=== PATIENT | female | born 1955 | race Caucasian/White ===

== ENCOUNTER 2025-03-21 18:50 | Inpatient (IN) | payer MEDICARE, SELFPAY ==
[2025-03-21] VITALS (8 sets, daily range): BP systolic 130–162; BP diastolic 64–101; BMI 32.9
--- NOTE | 2025-03-21 16:00 | ED.GENMED ---
History of Present Illness
General
Chief Complaint: Cardiac Symptoms
Source: patient
Exam Limitations: none
Time Seen by Provider: 03/21/25 15:35
Nursing documentation reviewed up to this point in time: agreed with
History of Present Illness
History of Present Illness:
Patient is a 69-year-old female with past history of breast CA who presents to the emergency department for evaluation of abnormal EKG. patient states she was at [facility] receiving a mammogram when she had vital signs taken which showed a low
heart rate of 43. They then performed an EKG at the facility and was then sent to the emergency department for further evaluation given abnormal findings.
Patient states overall she has been feeling relatively well. However she does endorse recent increased fatigue with exertion including walking on the treadmill. She denies any chest pain, shortness of breath, dizziness/lightheadedness. She has
not had any episodes of syncope.
She states that she last saw her primary care physician back in August and at that time had a normal heart rate.
Patient states she was receiving chemotherapy back in 2016 for breast CA. She briefly followed with a patient consumer marketer at that time as the medication to ensure that she never developed any cardiac side effects. Patient denies any personal history of
CAD.
She does take multiple supplements.
Patient's father had known coronary artery disease.
Past History
Past History
ED Past Medical History: Hypothyroidism, Psychiatric (Bipolar disorder) and Other (Resection of cerebellar tumor)
ED Past Surgical History: Cholecystectomy and Gynecological (bilateral oopherectomy, ectopic )
Social History
Tobacco: Non-smoker
Alcohol: Occasional
Personal:
Family History
Family History: Diabetes
Phy Exam
Physical Exam
Physical Exam:
Vitals: Mildly hypertensive, bradycardic, otherwise vital signs stable. Afebrile
General: Patient is well appearing, no acute distress
Skin: Warm and dry, no rashes or lesions
Head: Normocephalic, atraumatic
Eyes: Sclera nonicteric. EOMs intact. No nystagmus.
Throat: Protecting airway
Neck: Normal ROM, no cervical spine tenderness, no meningismus
Cardiac: Regular rate and rhythm, no murmurs. 2+ palpable radial pulses bilaterally
Pulm: Normal respiratory effort, no wheezes, rales, rhonchi heard on exam
Abdomen: Abdomen soft and nontender.
Extremities: No evidence of cyanosis or edema. 2+ palpable DP pulses bilaterally
Neuro: AAOx3. Grossly intact.
Psychiatric: Normal affect.
Course
Orders/Labs/Results
Orders:
Orders
03/21/25 14:44
Electrocardiogram (*1) Urgent
Reason for Study: Bradycardia / Tachycardia
EKG- Treatment ONCE
03/21/25 Dinner
Regular
At Your Request: Full Participation
Does patient need a safe tray?: No
03/21/25 16:26
Complete Blood Count/With Diff Urgent
Comprehensive Metabolic Panel Urgent
Free T4 Urgent
Magnesium Urgent
TSH Reflex To Free T4 Urgent
Troponin I Urgent
03/21/25 17:10
Electrocardiogram (*1) Urgent
Reason for Study: Palpitations
03/21/25 18:13
CARDIOLOGY CONSULT Routine
Consulting Provider: Juan Morrell
Was physician already notified: Yes
Reason for consult: mobitz type 2 heart block
03/21/25 18:14
Admit/Transfer Patient As Directed
Co-Sign Provider:
Level of Care: Inpatient admission
Assign to:: IVU
Physician / Group: cody borges
Diagnosis: mobitz type 2 heart block
Reason for Hospitalization: mobitz type 2 heart block
Expected length of stay greater than two midnights?: Yes
ELOS- Estimated Length of Stay in days: 3
I certify the patient meets the requirements for IP care: Yes
Code Status As Directed
Resuscitation Status: Full Code
03/21/25 18:18
PRN Pain Medication Management As Directed
May give lesser potent ordered pain med per pt: Yes
preference::
Protocol:: Medication orders for pain may be administered in a
manner that supports deferring to patient preference
when the pt is:
- Requesting an ordered lesser potent pain medication.
Least to most potent pain medications are defined
as: acetaminophen < NSAID < tramadol < opioids
(morphine, oxycodone, hydromorphone).
- Requesting a lesser dose of the same medication IF
ORDERED.
- Requesting a less intrusive route of administration
if both routes are prescribed by the provider (PO <
IV).
03/21/25 20:30
Acetaminophen [Tylenol] 650 mg PO Q4HPRN PRN
03/21/25 20:30
Activity As Directed
Activity Level: As Tolerated
Pneumatic Compression Sleeves As Directed
Type: Knee high
Vital Signs As Directed
Frequency: Per unit guidelines
Pt Eval And Treat Routine
Activity Level: As Tolerated
DX Deep Vein Thrombosis Video Routine
03/21/25 22:00
Quetiapine Fumarate [Seroquel] 100 mg PO HS
lamotrigine [Lamictal] 150 mg PO HS
03/22/25 06:00
EKG [Electrocardiogram (*1)] IN AM
Reason for Study: Other
Other Reason for Exam: heart block
NPO
Allow oral meds: Yes
Allow clear liquids: No
NPO with Ice Chips: No
Cardiovascular Evaluation IN AM
Complete Blood Count/With Diff IN AM
Comprehensive Metabolic Panel IN AM
03/22/25 18:00
Atorvastatin [Lipitor] 10 mg PO QPM
Cholecalciferol (Vitamin D3) [VITAMIN D3 (cholecalciferol)] 25 mcg PO QPM
Abnormal Lab Results
03/21/25
16:26
WBC 11.7 H 10^3/uL
(4.8-10.8)
MCH 32.5 H pg
(27.0-31.0)
Absolute Neuts (auto) 8.4 H 10^3/uL
(1.4-6.5)
Absolute Monos (auto) 0.8 H 10^3/uL
(0.1-0.6)
Lymphocytes % 20.1 L %
(20.5-51.1)
Glucose 112 H mg/dl
(70-99)
TSH (Reflex) 0.07 L uIU/ml
(0.47-4.68)
03/21/25 16:26
03/21/25 16:26
Vital Signs
Initial and Last Documented VS:
Initial Vital Signs
Temp Pulse Resp BP Pulse Ox
98.2 F 52 16 162/78 98
03/21/25 14:44 03/21/25 14:44 03/21/25 14:44 03/21/25 14:44 03/21/25 14:44
Last Documented Vital Signs
Temp Pulse Resp BP Pulse Ox
98 F 65 16 154/75 93
03/21/25 22:03 03/21/25 23:00 03/21/25 22:03 03/21/25 22:06 03/21/25 23:55
MDM/Problems Addressed
Differential Diagnosis Includes:
Not limited to: Medication side effect, acute dehydration, hypothyroid, cardiac arrhythmia, CAD, etc.
MDM/Problems Addressed:
69-year-old female presenting with asymptomatic bradycardia. Low heart rate detected at her scheduled mammogram appointment and patient sent for further evaluation. On arrival � EKG looks like sinus bradycardia in 40s. She is asymptomatic at this
time however does report some exertional fatigue over the past few weeks.
Patient bradycardic however, normotensive and otherwise stable. Physical exam as above.
Will check basic labs, thyroid levels, cardiac enzymes. Will keep patient on environmental monitoring technician and reassess.
Update: patient�s lab results unremarkable. As I was in the exam room with patient sharing results from lab test her pulse rate did increase into 60s/70s briefly however I did witness her rhythm convert to a type two second� AV block with 2:1
conduction. She remained asymptomatic at this time. An EKG was repeated which confirmed 2nd degree heart block.
I discussed with cardiology, Dr Morrell and given patient is stable and asymptomatic � recommend admission to hospitalist with plan for permanent pacemaker placement in the morning.
Transcutaneous pads placed. Patient accepted to hospitalist service in stable condition.
Chronic conditions affecting care:
History of breast CA
Acute Exacerbation and/or Progression of Chronic Illness:
N/A
*Pulse Oximetry
SaO2: 98
Oxygen Mode of Delivery: Room air
Patient hypoxic: no
*EKG
Interpreted by ED Provider?: Yes
EKG Intrepretation Date: 03/21/25
Interpretation: abnormal
Comparison EKG: changes noted
Heart Rate: 46
Rate: bradycardiac
Rhythm: sinus
[place]: normal axis
Interval: normal QT interval
QRS Pattern: right bundle branch block
Ischemia: no ischemia
*Production Generalist Interpretation
Rate: bradycardiac
Interpretation: abnormal
Heart Rate: 48
Rhythm: sinus
*Critical Care Note
Total Time (30-74mins, 75-104mins- exclusive of procedures): Not Applicable
Patient Management
Discussion with other providers: Hospitalist and Turnaround Engineer (Case discussed with cardiology)
ED Attending Note
-
Portions of this chart may have been created with voice recognition software.� Occasional wrong word or��sound alike� substitutions may have occurred due to the inherent limitations of voice recognition software.
Discharge Plan
Departure
Patient Disposition: Admit
Date of Disposition: 03/21/25
Time of Disposition: 17:53
Presentation/result/management discussed w/ accepting MD/DO: Hospitalist
Discharge Problem:
Mobitz (type) II atrioventricular block
Interventions
Interventions:
*Risk Screen - Suicide Last Done: 03/21/25 14:44
*General Assessment Last Done: 03/21/25 16:10
*Neglect/Abuse Screening Last Done: 03/21/25 14:44
*Nursing Disposition Last Done: 03/21/25 20:34
ED- Pulmonary Assessment Last Done: 03/21/25 16:10
ED- Cardiac Assessment Last Done: 03/21/25 16:10
Discharge Date and Time
Discharge Date/Time: 03/21/25 20:34
[2025-03-21 16:42] LABS: Hematocrit 41.3 % (37.0-47.0); Hemoglobin 13.8 g/dL (12.0-16.0); Mean Corp Hgb Conc. 33.4 g/dL (33.0-37.0); Mean Corpuscular Volume 97.2 fL (81.0-99.0); Nucleated Red Blood Cells % 0 %; Platelet Count 256 10^3/uL (130-400); Red Cell Dist. Width 12.8 % (11.5-14.5)
[2025-03-21 17:03] LABS: ALT (SGPT) 35 U/L (0-35); AST (SGOT) 30 U/L (14-36); Albumin 4.9 g/dl (3.5-5.0); Alkaline Phosphatase 81 U/L (38-126); Blood Urea Nitrogen 13 mg/dl (7-17); Calcium 9.9 mg/dl (8.4-10.2); Carbon Dioxide 25 mmol/L (22-30); Chloride 107 mmol/L (98-107); Estimated Creatinine Clearance 74 ml/min; Glucose 112 mg/dl (70-99); Magnesium 2.2 mg/dl (1.6-2.3); Potassium 5.0 mmol/L (3.5-5.1); Sodium 141 mmol/L (135-145); Total Protein 8.0 g/dl (6.3-8.2); eGFR > 60.00
[2025-03-21 17:30] LABS: Troponin I < 0.012 ng/ml
--- NOTE | 2025-03-21 18:24 | HPS.HSE ---
Family Physician
-
Family Physician: Kristen Phelan MD
Chief Complaint
-
Bradycardia with heart block
History of Present Illness
69-year-old female states she was at [facility] today receiving a mammogram when she had vitals taken that showed a heart rate of 43. She had EKG performed at facility showing Mobitz 2 secondary heart block and was sent to ER for further
evaluation. She does report some increased fatigue with exertion including walking on the treadmill. She denies any headache, dizziness, lightheadedness, syncope, fever, chills, sore throat, chest pain, palpitation, abdominal pain, nausea,
vomiting, diarrhea, urinary symptoms. The patient has past medical history of hypothyroidism, cerebellar tumor benign status post resection, bipolar disorder, left-sided breast cancer s/p lumpectomy 2016, former smoker quit 20 years ago.
Medical History
Past Medical History
Past Medical History: Reports Other
Additional Past Medical History:
Hypothyroidism
Cerebellar tumor status post resection
Bipolar disorder.
Past Surgical History: Reports Other
Additional Past Surgical History:
Cerebellar tumor benign status post resection 2014
Bilateral oophorectomy
ectopic
cholecystectomy
Social History
Tobacco: Former Smoker (Quit 20 years ago)
Alcohol: Occasional (Weekend drinks 6 drinks)
Drug: None
Personal:
Living: With Family ()
Employment: Retired
Family History
Family History: CAD (Father [place] age 61)
Allergies / Home Medications
Allergies reflects when Allergies were last updated in Simple.
Home Medications with original date entered in Simple
Allergy/Medication List:
Allergies
Allergy/AdvReac Type Severity Reaction Status Date / Time
prochlorperazine (From Allergy Unknown Verified 03/21/25 14:47
Compazine)
prochlorperazine edisylate Allergy Unknown Verified 03/21/25 14:47
(From Compazine)
prochlorperazine maleate Allergy Unknown Verified 03/21/25 14:47
(From Compazine)
scopolamine (From Allergy confusion, Verified 03/21/25 14:47
Transderm-Scop) dilated
pupils
Sulfa (Sulfonamide Allergy Unknown Verified 03/21/25 14:47
Antibiotics)
Home Medications
Prevagen 1 cap PO DAILY 03/21/25
ashwagandha extract 120 mg capsule 120 mg PO QPM 03/21/25
cholecalciferol (vitamin D3) 25 mcg (1,000 unit) capsule (Vitamin D3) 25 mcg PO QPM 03/21/25
lamotrigine 150 mg tablet (Lamictal) 150 mg PO HS 03/21/25
levothyroxine 50 mcg tablet (Synthroid) 50 mcg PO DAILY 03/21/25
omega 1-gly-bjq-fish oil 1,000 mg (120 mg-180 mg) capsule (Fish Oil) 1 cap PO QPM 03/21/25
quetiapine 100 mg tablet (Seroquel) 100 mg PO HS 03/21/25
simvastatin 20 mg tablet (Zocor) 20 mg PO QPM 03/21/25
turmeric 400 mg capsule 400 mg PO QPM 03/21/25
Review of Systems
-
History Source: Patient
A 12 point ROS was completed and negative except as noted: Yes
Constitutional: Denies Fever or Chills
EENT: Denies Sore Throat
Respiratory: Reports Other (Increased HUBER with exertion times few months); Denies Cough or Trouble Breathing
Cardiac: Reports Other (Bradycardia); Denies Chest Pain, Palpitations or Syncope
Abdomen/GI: Denies Abdominal Pain, Nausea, Vomiting, Diarrhea or Constipated
: Denies Dysuria, Frequency, Flank Pain or Incontinence
Musculoskeletal: Denies Joint Pain or Edema
Skin: Denies Itching or Rash
Neurological: Reports Dizzy (Occasional lightheadedness random); Denies Headache
Endocrine: Reports No Symptoms
Hematologic/Lymphatic: Reports No Symptoms
Psych: Reports Calm
Physical Exam
Vital Signs
Vital Signs
Temp Pulse Resp BP Pulse Ox
98.2 F 52 16 162/78 98
03/21/25 14:44 03/21/25 14:44 03/21/25 14:44 03/21/25 14:44 03/21/25 16:08
Physical Exam
General: Comfortable and Conversant; No Pain, Fever or Chills
HEENT: NormoCephalic, Anicteric, Moist mucous membranes, PERRLA and No Ptosis
Respiratory: Clear; No Wheezes, Rales or Rhonchi
Cardiac: S1/S2 and Bradycardia (Heart rate 44 bpm on monitor, pacer pads present to chest wall); No Murmur, Rub, Gallop or Peripheral Edema
Breast: Deferred by me
GI: Soft, Non Tender, Non Distended, Normal Bowel Sounds and No Hepatosplenomegaly
Genito-urinary: Deferred by me
Musculoskeletal: No Clubbing, No Cyanosis and No Edema
Skin: Warm and Dry; No Rash or Jaundice
Neuro: AO x 3, No Motor Deficits, Nonfocal/grossly intact, Cranial Nerves Intact and No Sensory Deficits; No Slurred Speech, Facial Droop, Tremors or Sedated
Psych: Calm
Laboratory Results
-
03/21/25 16:26
03/21/25 16:26
Laboratory Results
Total Bilirubin 0.8 mg/dl (0.2-1.3) 03/21/25 16:26
AST 30 U/L (14-36) 03/21/25 16:26
ALT 35 U/L (0-35) 03/21/25 16:26
Alkaline Phosphatase 81 U/L (38-126) 03/21/25 16:26
Troponin I < 0.012 ng/ml 03/21/25 16:26
Impression/Plan
-
Impression/plan:
Admit to IVU
#Mob[place] type II 2:1 AV block
-Consult cardiology Dr. Jerman joyner
-N.p.o. after midnight for pacemaker in a.m.
-Pacer pads present to chest wall
-EKG in a.m.
- 2D echo in a.m.
#Bipolar disorder
QTc 453 MS on EKG
-Continue Seroquel 100 mg at bedtime, Lamictal 150 mg at bedtime
#HLD
-Check lipid profile
-Continue Zocor 20 mg every afternoon
#Hypothyroidism
TSH 0.07 LOW
- Will decrease levothyroxine 50 mcg p.o. daily to levothyroxine 37.5 mcg p.o. daily
Have patient follow-up outpatient 6 to 8 weeks with PCP for repeat thyroid function studies
#History of breast cancer status postchemotherapy 2016
- Patient had outpatient mammogram today
#Cerebellar tumor benign status post resection 2014
DVT prophylaxis
Subcu heparin
Full code
--- NOTE | 2025-03-21 18:41 | CON.CAR ---
Consultation
Consultation Request
Date/Time Consultation Requested: 03/21/2025
Date/Time Consultation Performed: 03/21/2025
Requesting Provider: Yael Laura PA-C
Performing Provider: Dr. Morrell
Reason for Consultation: Heart block
Medical History
-
Chief Complaint: Heart block
History of Present Illness:
69-year-old female with hyperlipidemia, hypothyroidism, breast cancer status-postlumpectomy and radiation (2016), cerebellar hemangioma status-post removal (2014), obesity, and bipolar disorder who was referred to the ER after being found to be in
heart block during a routine screening mammogram. The patient states that she occasionally feels lightheadedness, but she has not had any near-syncope/syncopal episodes. She also experiences intermittent episodes of shortness of breath with
exertion (non-limiting). She denies chest pain, palpitations or lower extremity swelling. Patient was found to be in Mobitz 2 heart block with heart rates in the 40s upon arrival to the ER.
Past Medical History
Past Medical History: Cancer (Breast) and Hypothyroidism
Past Surgical History: Gynecological (Lumpectomy, oophorectomy)
Social History
Tobacco: Former Smoker (Quit 30 years ago)
Alcohol: Occasional (On weekends)
Drug: None
Living: With Family
Family History
Family History: Reviewed & Not Pertinent
Allergies / Home Medications
Allergy/AdvReac Type Severity Reaction Status Date / Time
prochlorperazine (From Allergy Unknown Verified 03/21/25 14:47
Compazine)
prochlorperazine edisylate Allergy Unknown Verified 03/21/25 14:47
(From Compazine)
prochlorperazine maleate Allergy Unknown Verified 03/21/25 14:47
(From Compazine)
scopolamine (From Allergy confusion, Verified 03/21/25 14:47
Transderm-Scop) dilated
pupils
Sulfa (Sulfonamide Allergy Unknown Verified 03/21/25 14:47
Antibiotics)
�Medication �Instructions �Recorded �Confirmed �Type
Prevagen 1 cap PO DAILY 03/21/25 03/21/25 History
ashwagandha extract 120 mg capsule 120 mg PO QPM 03/21/25 03/21/25 History
cholecalciferol (vitamin D3) 25 25 mcg PO QPM 03/21/25 03/21/25 History
mcg (1,000 unit) capsule (Vitamin
D3)
lamotrigine 150 mg tablet 150 mg PO HS 03/21/25 03/21/25 History
(Lamictal)
levothyroxine 50 mcg tablet 50 mcg PO DAILY 03/21/25 03/21/25 History
(Synthroid)
omega 8-zpz-wuw-fish oil 1,000 mg 1 cap PO QPM 03/21/25 03/21/25 History
(120 mg-180 mg) capsule (Fish Oil)
quetiapine 100 mg tablet (Seroquel) 100 mg PO HS 03/21/25 03/21/25 History
simvastatin 20 mg tablet (Zocor) 20 mg PO QPM 03/21/25 03/21/25 History
turmeric 400 mg capsule 400 mg PO QPM 03/21/25 03/21/25 History
Review of Systems
-
History Source: Patient
All other systems: Negative unless noted
Physical Exam
Vital Signs
Temp Pulse Resp BP Pulse Ox
98.2 F 52 16 162/78 98
03/21/25 14:44 03/21/25 14:44 03/21/25 14:44 03/21/25 14:44 03/21/25 16:08
Lab Results
03/21/25 16:26
03/21/25 16:26
Troponin I < 0.012 ng/ml 03/21/25 16:26
Physical Exam
General: Well Developed, Well Nourished, No Apparent Distress and Comfortable
HEENT: Normocephalic and Anicteric
Respiratory: Clear
Cardiac: S1/S2 and Regular Rhythm (Bradycardic)
Breast: Deferred by me
GI: Soft and Non Tender
Rectal: Deferred by Provider
Musculoskeletal: No Clubbing, No Cyanosis and No Edema
Skin: Warm and Dry
Neuro: AO x 3
Psych: Calm
Impression / Plan
-
69-year-old female with hyperlipidemia, hypothyroidism, breast cancer status-postlumpectomy and radiation (2017), cerebellar hemangioma status-post removal (2014), obesity, and bipolar disorder who was referred to the ER after being found to be in
heart block during a routine screening mammogram. The patient states that she occasionally feels lightheadedness, but she has not had any near-syncope/syncopal episodes. She also experiences intermittent episodes of shortness of breath with
exertion (non-limiting). She denies chest pain, palpitations or lower extremity swelling. Patient was found to be in Mobitz 2 heart block with heart rates in the 40s upon arrival to the ER.
Mobitz 2 heart block/RBBB:
- Patient with bradycardia to 40s; clinically stable, currently asymptomatic.
- Patient is being admitted to the Hospitalist service.
- Patient will undergo permanent pacemaker implantation tomorrow morning; will obtain echocardiogram prior to procedure.
- hair designer in IVU; keep transcutaneous pacer pads in place.
Hypothyroidism:
- TSH pending.
- On Synthroid at home.
Hyperthyroidism:
- Current status unknown
- Check lipid panel
- On simvastatin 20 mg daily at home
Breast cancer:
- In remission.
Bipolar disorder:
- Mood appears to be stable at this time.
- Management as per primary team.
Data Reviewed
-
EKG: Tracing Personally Visualized and interpreted (Sinus rhythm with Mobitz 2 heart block with 2:1 AV conduction and right bundle branch block)
Labs: Labs Reviewed by me and Discussed with Physician (ER/Hospitalist teams)
--- NOTE | 2025-03-21 18:50 | W.PN.UPDATE ---
Update Note
Progress Note Update
This is an addendum to H&P written by LABELING ASSOCIATE Mariangel Mccain
I saw and examined the patient.
The LABELING ASSOCIATE's note was reviewed and I agree with the note.
Comment:
Ms. Gypsy Barbosa is a 69 yo woman with hx breast CA, hypothyroidism, bipolar disorder presents sent to ER after outpatient EKG showed a low HR with heart block. Patient was getting a mammogram when it was noticed her pulse was in 40's which led to
EKG. She has had increased fatigue with exertion, no chest pain or pre-syncope.
Triage VS: T 98.2, P 52, RR 16, BP 162/78, SpO2 98%
LABS: Na 141, K+ 5.0, Cr 0.7, WBC 11.7
EKG with 2nd degree heart block type II
2nd Degree Heart Block Mobitz Type II
-admit to IVU
-pacer pads on
-seen by Cardiology in ER
-NPO after MN for PPM tomorrow
-TTE
Bipolar - DIRECTOR OPERATING ROOM Seroquel (QTc OK), Lamictal
Hypothyroidism - TSH low, will decrease synthroid to 37.5mcg with close follow up TFT's
Remainder of plan per LABELING ASSOCIATE note
76 minutes spent on patient care
--- NOTE | 2025-03-21 21:25 | PTCARENOTE ---
Rec'd pt as admission from ER. Pt AAO*3, VSS, and Mobitz type 2 HB with occasional sinus rhythm. Heart rate ranges from 40-60's. Pt denies any weakness, lightheadedness, or vision changes. PT oriented to unit. Admission complete. Pt denies any
pain or discomfort. Pt denies having any questions or concerns. PT provided information on possible PPM in AM. Pt agreed to be NPO after midnight. Pt currently resting with call hayden in reach. See MAR and flowchart for full pt care and
assessment.
[2025-03-21] MEDS: LAMICTAL 150 MG PO (22:07)
[2025-03-21] MEDS: SEROQUEL 100 MG PO (22:08)
[2025-03-22] VITALS (14 sets, daily range): BP systolic 113–157; BP diastolic 62–85; BMI 32.8
[2025-03-22 03:45] LABS: Hematocrit 37.5 % (37.0-47.0); Hemoglobin 12.4 g/dL (12.0-16.0); Mean Corp Hgb Conc. 33.1 g/dL (33.0-37.0); Mean Corpuscular Volume 96.6 fL (81.0-99.0); Nucleated Red Blood Cells % 0 %; Platelet Count 244 10^3/uL (130-400); Red Cell Dist. Width 12.6 % (11.5-14.5)
[2025-03-22 04:08] LABS: ALT (SGPT) 32 U/L (0-35); AST (SGOT) 26 U/L (14-36); Albumin 4.4 g/dl (3.5-5.0); Alkaline Phosphatase 68 U/L (38-126); Blood Urea Nitrogen 11 mg/dl (7-17); Calcium 9.4 mg/dl (8.4-10.2); Carbon Dioxide 24 mmol/L (22-30); Chloride 109 mmol/L (98-107); Estimated Creatinine Clearance 74 ml/min; Glucose 101 mg/dl (70-99); HDL Cholesterol 72 mg/dl; LDL Cholesterol, Calculated 59 mg/dl; Potassium 4.4 mmol/L (3.5-5.1); Sodium 140 mmol/L (135-145); Total Protein 7.2 g/dl (6.3-8.2); Very Low Density Lipoprotein 21 mg/dl (0-30); eGFR > 60.00
[2025-03-22 04:58] LABS: Hepatitis C Antibody Negative (Negative)
--- NOTE | 2025-03-22 08:19 | W.PN.HOSP.TC ---
Addendum entered and electronically signed by Edilson Escobedo MD 03/22/25 14:10:
Mobitz type II heart block
Plan for PPM
2D echocardiogram pre-PPM placement
Cardiology following
Avoid AV deanna blocking agents
Continue cutaneous pacer pads
Hypothyroidism
Repeat TFTs in 4 to 6 weeks
Continue 50 mics levothyroxine
- TSH 0.07. Less likely hyperthyroidism or iatrogenic hyperthyroidism as would expect tachycardia rather then bradycardia and HB
Original Note:
Today's Communication/Plan
-
Echocardiogram and PPM
Assessment / Plan
Assessment / Plan
Impression
Gypsy is a 69-year-old female, admitted with Mobitz type II heart block with heart rate in 40s upon arrival to the ER.. She reports occasional lightheadedness, some shortness of breath on exertion but never had any syncopal episode.
Assessment/plan
#Mobitz type II heart block/right bundle branch block
On admission patient asymptomatic, EKG consistent with Mobitz type II heart block and right bundle branch block, heart rate in 40s
Overnight patient's heart rate remained in 50s to 60s
Plan to do echocardiogram today and permanent pacemaker implantation
Echo 03/22/25
Ejection fraction is 60-65% by volumetric assesment. Right ventricular size and systolic function are within normal limits.No significant valvular disease.
Patient still in Mobitz type 2 heart block-PPM due today
On telemetry in IVU
Monitor heart rate and blood pressure
# Hypothyroidism
Low TSH-0.07 -T4 1.11---Would continue her thyroxine
She is admitted with bradycardia-the S/S and lab values does not correlate
Continue same dose
Repeat TFTs in 4 to 6 weeks
#Hyperlipidemia
Continue simvastatin
Lipid panel looks great
#Bipolar disorder-on Seroquel at home, QTc okay, continue home medications
Anticipated Discharge: Within 24 hours
Subjective/Interval History
-
Date of Service: March 22, 2025
Patient seen and examined at bedside
She feels fine, denies any chest pain, shortness of breath, fatigue or any other issues
Currently undergoing her echocardiogram
Objective Data
-
Labs:
Laboratory Results
03/22/25
03:20
WBC 9.7
Hgb 12.4
Hct 37.5
Plt Count 244
Sodium 140
Potassium 4.4
Chloride 109 H
Carbon Dioxide 24
BUN 11
Creatinine 0.7
Glucose 101 H
Calcium 9.4
Total Bilirubin 0.7
AST 26
ALT 32
Alkaline Phosphatase 68
Vital Signs:
Vital Signs
Temp Pulse Resp BP Pulse Ox
98.8 F 65 20 128/73 94
03/22/25 07:35 03/22/25 03:09 03/22/25 07:35 03/22/25 03:09 03/22/25 07:35
I&O
03/21/25 03/22/25 03/23/25
06:59 06:59 06:59
Intake Total 240 / 240
Balance 240 / 240
Review of Systems
-
All other systems: Reviewed and negative
Physical Exam
-
General: Well Developed, Well Nourished and No Apparent Distress
HEENT: Normocephalic and Moist Mucous Membranes
Respiratory: Clear to Auscultation; Negative Wheezes, Rales or Rhonchi
Cardiac: Regular Rhythm, S1/S2 and Other (Heart rate 65)
GI: Soft and Nontender
Musculoskeletal: No Clubbing, No Cyanosis and No Edema
Skin: Warm and Dry
Neuro: Awake and AO x 3
Psych: Calm
[2025-03-22] MEDS: SYNTHROID 37.5 MCG PO (08:46)
--- NOTE | 2025-03-22 11:00 | PTCARENOTE ---
Pt going from SR to mobitz 2 on monitor. States feels 'fluttering and heaviness in chest', denies dizziness, BP 150/60. Linda Short NP made aware. No new orders at this time.
--- NOTE | 2025-03-22 11:30 | CM ---
Chart reviewed. Patient is independent of ADLS, lives with her in 2 [address], 0 YOSHI, 0 DME. Plan is for the patient to return home. CM to follow
--- NOTE | 2025-03-22 15:20 | PTCARENOTE ---
Received pt from shift lab technician, VSS, monitor showing AVpaced/Vpaced, underlying SR. Right chest wall dressing c/d/i. Immobilizer in place, +CMS to right hand/fingers. Medicated with tylenol for c/o right shoulder pain. Instructed on activity
restrictions, to call for assistance to ambulate. at bedside, call hayden in reach.
--- NOTE | 2025-03-22 16:04 | ITS.CL.PACE ---
Civil Drafter - Pacemaker Implant
Pacemaker Implant
Procedure Report:
Date of Procedure: March 22, 2025.
Procedure: Pacemaker Implantation. Right upper extremity venogram.
Indication: The pacemaker is for the treatment of nonreversible symptomatic bradycardia due to second degree (Mobitz II) atrioventricular block.
Performing physician: Andre Valdovinos MD, [facility].
Implants:
Pulse Generator: Medtronic; Model# W1DR01; Serial# [id number].
RA Lead: Medtronic; Model# 5076-45cm; Serial# [id number].
RV Lead: Medtronic; Model# 3830-69cm; Serial# [id number].
Technique: A time out was performed. A 10 mL upper extremity venogram demonstrated patent right axillary and subclavian veins. The procedure site was identified. The patient was anesthetized by the anesthesia service. Preoperative cefazolin was
administered. The patient was prepped and draped in the usual fashion. Local anesthetic was applied to the right prepectoral subcutaneous tissue. A 3 inch incision was made along the right deltopectoral groove. Dissection was carried to the fascia.
The right cephalic vein was no located upon careful dissection fo the deltopectoral fat pad. The right axillary vein was accessed with two separate percutaneous micro- punctures without difficulty. The leads were introduced with hemostatic peel
away introducer sheaths. The RV lead was placed using utilizing the FatRedCouch His delivery catheter ([id number]) that was advanced to the left bundle area as confirmed by fluoroscopy in the TELUGU and HERNANDEZ projections. The lead tip was advanced. PVC
morphology was reviewed. When a satisfactory location was identified (W pattern observed) the lead was screwed into position with serial turns. Septal engagement was confirmed with gentle torque applied to the guide sheath. After each series of
turns (2-3) unipolar sensed morphology and impedance, and paced morphology of V1 was analyzed. The lead was further advanced until satisfactory morphology and electrical characteristics were confirmed. The RV lead was placed in about the fourth
location evaluated. The long guiding sheath was cut and removed from the RV without change in lead position, impedance, sensing, or capture. The ventricular lead was secured to the pectoralis muscle and fascia with two 0-silk sutures. The atrial
lead was placed in the right atrial appendage. 8 volt pacing from each lead did not capture the diaphragm. The atrial leads was secured to the pectoralis muscle and fascia. A subcutaneous pocket was created with Bovie cautery. Hemostasis was
excellent. The leads were appropriately attached to the device. The pocket was irrigated with antibiotic solution. The device and leads were placed in the pocket. The incision was closed in three layers with absorbable suture. Steri-strips and a
silver impregnated dressing were placed. Estimated blood loss was 5 ml. There were no complications. Fluoroscopy time 6.3 minutes and DAP 2.38 GyCM2. The device was then interrogated after skin closure.
Lead Analysis:
RA lead: P: 2.8 mV; Threshold: 0.75 V @ 0.4 ms; Impedance: 485 ohms.
RV lead (bipolar): R: 8.8 mV; Threshold: 0.75 V @ 0.4 ms; Impedance: 817 ohms.
RV lead (unipolar): R: 9.5 mV; Threshold: 0.75 V @ 0.4 ms; Impedance: 646 ohms.
Paced QRS characteristics (both unipolar and bipolar at high and low outputs): V1 has Qr morphology and measures 120 ms in duration, LVAT (stim to peak V5/V6) is 76 ms, and R peak V1 to R peak V6 is 47 ms.
Final Programming: MVP (AAIR to DDDR) 60-130 bpm.
Conclusion: Uncomplicated Medtronic pacemaker implant. The pacing system is MRI conditional.
Recommendation: Routine post pacemaker care.
cc: Kristen Phelan MD and Juan Morrell MD.
[2025-03-22] MEDS: VITAMIN D3 (cholecalciferol) 25 MCG PO (17:09)
[2025-03-22] MEDS: LIPITOR 10 MG PO (17:09)
[2025-03-22] MEDS: TYLENOL 650 MG PO ×2 (17:09→21:54)
[2025-03-22] MEDS: LAMICTAL 150 MG PO (21:53)
[2025-03-22] MEDS: ANCEF 5 IV (21:53)
[2025-03-22] MEDS: SEROQUEL 100 MG PO (21:54)
--- NOTE | 2025-03-22 22:00 | PTCARENOTE ---
VS done by PCT. Pt assessed. Remains oriented x 4. Speech clear. Equal strength x 4. Assisted to BR to void clear, yellow urine. Helped back to bed. New gown applied. Immobilizer intact. BBS present. Clear. Sats 95% on room air. Pt AV paced at 60-61
bpm. pulses palpable. See VS and assessment flowsheet. Audible heart tones. Aquacel intact to R upper chest. Normoactive bs x 4. Passing gas. Requested stool softener if needed. Later refused for now. Tylenol 650 mg po for R shoulder pain 10/04.
Scheduled meds given. Ongoing plan of care.
[2025-03-23 03:22] VITALS: BP 129/63
[2025-03-23 04:09] LABS: Hematocrit 37.8 % (37.0-47.0); Hemoglobin 12.3 g/dL (12.0-16.0); Mean Corp Hgb Conc. 32.5 g/dL (33.0-37.0); Mean Corpuscular Volume 98.4 fL (81.0-99.0); Platelet Count 237 10^3/uL (130-400); Red Cell Dist. Width 12.7 % (11.5-14.5)
[2025-03-23 04:30] LABS: Blood Urea Nitrogen 12 mg/dl (7-17); Calcium 9.1 mg/dl (8.4-10.2); Carbon Dioxide 25 mmol/L (22-30); Chloride 108 mmol/L (98-107); Estimated Creatinine Clearance 74 ml/min; Glucose 99 mg/dl (70-99); Magnesium 2.2 mg/dl (1.6-2.3); Potassium 4.1 mmol/L (3.5-5.1); Sodium 141 mmol/L (135-145); eGFR > 60.00
--- NOTE | 2025-03-23 05:00 | PTCARENOTE ---
VS done. Pt remains AV paced. Pt labs drawn and sent. Scheduled antibiotic given. No c/o pain. Pt attempting to go back to sleep.
[2025-03-23] MEDS: ANCEF 5 IV (05:06)
[2025-03-23] MEDS: SYNTHROID 50 MCG PO (05:06)
[2025-03-23 06:53] VITALS: BP 136/65
[2025-03-23] MEDS: COLACE 100 MG PO (09:10)
[2025-03-23] MEDS: TYLENOL 650 MG PO (09:13)
--- NOTE | 2025-03-23 09:35 | PTCARENOTE ---
pt received at change of shift from previous RN. Pt AAOX3, reports right arm/shoulder pain- prn Tylenol given. AV paced on telemetry heart rate 60s. pulses palpable. no edema. pt on room air. active bowel sounds. voiding without difficultly.
pt updated on plan of care. see worklist for full nursing assessment.
--- NOTE | 2025-03-23 09:50 | W.PN.CD ---
Today's Communication / Plan
-
She is safe for discharge from cardiovascular standpoint.
She has follow-up scheduled with our office as outlined in discharge paperwork.
Impression / Plan
-
69-year-old female with hyperlipidemia, hypothyroidism, breast cancer status-postlumpectomy and radiation (2016), cerebellar hemangioma status-post removal (2014), obesity, and bipolar disorder who was referred to the ER after being found to be in
heart block during a routine screening mammogram. The patient states that she occasionally feels lightheadedness, but she has not had any near-syncope/syncopal episodes. She also experiences intermittent episodes of shortness of breath with
exertion (non-limiting). She denies chest pain, palpitations or lower extremity swelling. Patient was found to be in Mobitz 2 heart block with heart rates in the 40s upon arrival to the ER.
Mobitz 2 heart block/RBBB s/p PPM complicated by hematoma
- Patient with bradycardia to 40s. Now s/p PPM.
- Hematoma improving on exam
- She is safe for discharge from a cardiovascular standpoint
Hypothyroidism:
- Free T4 normal here
Hyperlipidemia
- LDL 59 on 03/22/2025
- On simvastatin 20 mg daily at home
Breast cancer:
- In remission.
Bipolar disorder:
- Mood appears to be stable at this time.
- Management as per primary team.
Subjective: Complaining of pleuritic pain in her back. Walked with PT this morning and was hypotensive to 80s/50s with lightheadedness.
Physical Exam
Vital Signs/Labs
Vital Signs
Temp Pulse Resp BP Pulse Ox
98.7 F 68 18 136/65 93
03/23/25 06:52 03/23/25 09:00 03/23/25 06:52 03/23/25 06:53 03/23/25 06:52
03/22/25 03/23/25 03/24/25
06:59 06:59 06:59
Actual Weight 179 lb 0.246 oz
03/23/25 03:39
03/23/25 03:39
Magnesium 2.2 mg/dl (1.6-2.3) 03/23/25 03:39
Triglycerides 107 mg/dl (10-149) 03/22/25 03:20
LDL Cholesterol, Calc 59 mg/dl 03/22/25 03:20
VLDL Cholesterol, Calc 21 mg/dl (0-30) 03/22/25 03:20
HDL Cholesterol 72 mg/dl 03/22/25 03:20
Free T4 1.11 ng/dl (0.78-2.19) 03/21/25 16:26
LAB Results
03/21/25
16:26
Troponin I < 0.012
Physical Exam
Constitutional: No acute distress and Comfortable
Cardiovascular: Rhythm & rate is regular, Pedal edema is absent, S1S2 is normal and Murmur/rub/gallop absent
Respiratory: Respiratory effort normal and Lungs clear to auscul.
Neuro/Psych: AO x 3
Other: Cardiac Device Site (Pacer site soft without significant tenderness or erythema. Swelling consistent with known hematoma.)
Data Reviewed
-
Date of Service: March 23, 2025
Medical Decision Making: Reviewed Test Results, Test Interpretation and Review of Case with other Provider
EKG: Tracing Personally Visualized and interpreted
Echo: Report Reviewed by me
X-Ray/CT/US/MRI/NUC/PET: Report Reviewed by me
Labs: Labs Reviewed by me
[2025-03-23 11:29] VITALS: BP 142/82
--- NOTE | 2025-03-23 13:50 | W.PN.HOSP.TC ---
Addendum entered and electronically signed by Edilson Escobedo MD 03/23/25 15:03:
dc home
outpt cards follow up
s/p ppm, tolerated well, pressure/flutter improved
Original Note:
Today's Communication/Plan
-
Discharged today and follow-up with cardiology on outpatient basis
Assessment / Plan
Assessment / Plan
Impression
Gypsy is a 69-year-old female, admitted with Mobitz type II heart block with heart rate in 40s upon arrival to the ER.. She reports occasional lightheadedness, some shortness of breath on exertion but never had any syncopal episode.
Assessment/plan
#Mobitz type II heart block/right bundle branch block
On admission patient asymptomatic, EKG consistent with Mobitz type II heart block and right bundle branch block, heart rate in 40s
Echo 03/22/25
Ejection fraction is 60-65% by volumetric assesment. Right ventricular size and systolic function are within normal limits.No significant valvular disease.
S/p B permanent pacemaker complicated by hematoma
Cardiology consult appreciated-hematoma improving, okay to discharge from cardiology perspective and follow-up on outpatient basis
Monitor heart rate and blood pressure
# Hypothyroidism
Low TSH-0.07 -T4 1.11---Would continue her thyroxine
She is admitted with bradycardia-the S/S and lab values does not correlate
Continue same dose
Repeat TFTs in 4 to 6 weeks
#Hyperlipidemia
Continue simvastatin
Lipid panel looks great
#Bipolar disorder-on Seroquel at home, QTc okay, continue home medications
Anticipated Discharge: Today
Subjective/Interval History
-
Date of Service: March 23, 2025
Patient seen and examined at bedside
No active issues, the procedure went well and she has been feeling fine
Reports some soreness of right arm as expected
Objective Data
-
Labs:
Laboratory Results
03/23/25
03:39
WBC 8.7
Hgb 12.3
Hct 37.8
Plt Count 237
Sodium 141
Potassium 4.1
Chloride 108 H
Carbon Dioxide 25
BUN 12
Creatinine 0.7
Glucose 99
Calcium 9.1
Vital Signs:
Vital Signs
Temp Pulse Resp BP Pulse Ox
98.2 F 61 16 142/82 95
03/23/25 11:36 03/23/25 11:36 03/23/25 11:36 03/23/25 11:29 03/23/25 11:36
I&O
03/22/25 03/23/25 03/24/25
06:59 06:59 06:59
Intake Total 240 / 240 480 / 480
Balance 240 / 240 480 / 480
Review of Systems
-
All other systems: Reviewed and negative
Physical Exam
-
General: No Apparent Distress and Comfortable
HEENT: Normocephalic, Atraumatic and Moist Mucous Membranes
Respiratory: Clear to Auscultation; Negative Wheezes, Rales or Rhonchi
Cardiac: Regular Rhythm and S1/S2; Negative Murmur, Rub or Gallop
GI: Soft, Nontender and Normal Bowel Sounds
Musculoskeletal: No Clubbing, No Cyanosis and No Edema
Skin: Warm and Dry
Neuro: Awake, AO x 3 and Nonfocal/Grossly Intact
Psych: Calm
--- NOTE | 2025-03-23 13:55 | W.DCSUMMARY ---
Discharge Summary
Discharge Data
Date of Admission: 03/21/25
Date of Discharge: 03/23/25
-
Pending Results: No
Hospital Course
69-year-old female with hyperlipidemia, hypothyroidism, breast cancer s/p lumpectomy and radiation in 2016, cerebral hemangioma s/p removal 2014, obesity and bipolar disorder who came to the ER when she was found to be in Mobitz type II heart block
on a routine screening mammogram. She does report occasional lightheadedness but never had a syncopal episode. Patient evaluated by cardiology, heart rate was ranging in 40s and EKG consistent with Mobitz type II heart block. Echocardiogram done
in the hospital that showed normal left ventricular systolic function with an ejection fraction of 60 to 65%. A permanent pacemaker was placed on 03/22/2025. Patient tolerated the procedure well . It was complicated by hematoma and patient kept
under observation overnight.In the morning, the patient walked with PT and was cleared by cardiology for discharge.
Discharge Plan
-
Patient Disposition: Home (Routine Discharge)
Discharge Diagnosis/Procedures: Pacemaker implant
Condition: Good
Diet: Regular
Activity: As tolerated
Driving Restrictions: No driving for 1 week
Instructions: Pacemaker insertion (DC), Pacemaker insertion
Stand Alone Forms: DC Inst - Implanted Device
Referrals:
[facility] [Provider Group] - 03/29/25 11:00 am
Referral Note: Incision check appointment
Kristen Phelan MD [Family Provider, Internal Medicine]
Dayami Mccray CRNP [Specified Professional Personl, Cardiology] - 04/12/25 10:40 am
Prescriptions:
Continued
simvastatin [Zocor] 20 mg Tablet
20 mg PO QPM
lamotrigine [Lamictal] 150 MG tablet
150 mg PO HS
quetiapine [Seroquel] 100 mg Tablet
100 mg PO HS
levothyroxine [Synthroid] 50 mcg Tablet
50 mcg PO DAILY
cholecalciferol (vitamin D3) [Vitamin D3] 25 mcg (1,000 unit) Capsule
25 mcg PO QPM
omega 0-vsk-soj-fish oil [Fish Oil] 1,000 (120-180) mg Capsule
1 cap PO QPM
turmeric 400 mg Capsule
400 mg PO QPM
ashwagandha extract 120 mg Capsule
120 mg PO QPM
Prevagen
1 cap PO DAILY
Discharge Orders:
Discharge Patient (As Directed); Ordered 03/23/25
Ordered By: Alex Chaney
Care Plan Goals
Care Plan Goals:
Problem: Readiness for enhanced knowledge related to diagnosis and treatment plan
Goal: Understand your diagnosis and treatment plan needs, including medications if applicable.
Instructions: Know your diagnosis, underlying causes and treatment plan options, including medications if applicable. Consult with your health care team to learn about your diagnosis and treatment plan, including medications if applicable.
Discharge Date and Time
Discharge Date/Time: 03/23/25 12:25
Print Language: CUBAN
== END 2025-03-23 12:25 | disposition home or self-care (01) | DRG 244 ==
LOC: IVU 18:50
PROVIDERS: Clinical Nurse Specialist Family Health; Internal Medicine Cardiovascular Disease; Nurse Practitioner Adult Health; Physician Assistant; ADMITTING PHYSICIAN Student in an Organized Health Care Education/Training Program; ATTENDING PHYSICIAN Hospitalist; CONSULT PHYSICIAN Internal Medicine; EMERGENCY PHYSICIAN Emergency Medicine; FAMILY PHYSICIAN Hospitalist
PROC: 02HK3JZ Insertion of Pacemaker Lead into Right Ventricle, Percutaneous Approach (ICD-10-PCS; 2025-03-22)
PROC: 02H63JZ Insertion of Pacemaker Lead into Right Atrium, Percutaneous Approach (ICD-10-PCS; 2025-03-22)
PROC: 0JH606Z Insertion of Pacemaker, Dual Chamber into Chest Subcutaneous Tissue and Fascia, Open Approach (ICD-10-PCS; 2025-03-22)
DX: I44.1 Atrioventricular block, second degree (principal); I45.10 Unspecified right bundle-branch block; E03.9 Hypothyroidism, unspecified; E66.9 Obesity, unspecified; F31.9 Bipolar disorder, unspecified; E78.5 Hyperlipidemia, unspecified; Z85.3 Personal history of malignant neoplasm of breast; Z82.49 Family history of ischemic heart disease and other diseases of the circulatory system; Z92.21 Personal history of antineoplastic chemotherapy; Z90.49 Acquired absence of other specified parts of digestive tract; Z83.3 Family history of diabetes mellitus; Z87.891 Personal history of nicotine dependence; Z88.2 Allergy status to sulfonamides; Z88.8 Allergy status to other drugs, medicaments and biological substances; Z79.890 Hormone replacement therapy; Z92.3 Personal history of irradiation; Z79.899 Other long term (current) drug therapy; Z68.32 Body mass index [BMI] 32.0-32.9, adult
CPT/HCPCS: 33208; 71045; 80048; 80053; 80061; 83735; 84439; 84443; 84484; 85025; 85027; 86803; 93005; 93306; 99285; C1769; C1785; C1898; Q9967

== ENCOUNTER → 2025-04-12 11:44 | Outpatient (REF) | payer MEDICARE, SELFPAY | LOC: RAD 11:44 | PROVIDERS: ATTENDING PHYSICIAN Nurse Practitioner Gerontology; FAMILY PHYSICIAN Hospitalist | DX: I44.1 Atrioventricular block, second degree (principal) | CPT/HCPCS: 71046 ==

== ENCOUNTER 2025-04-16 12:16 | Day surgery (SDC) | payer MEDICARE, SELFPAY ==
[2025-04-16 10:51] VITALS: BMI 33.1
[2025-04-16 12:48] VITALS: BP 156/77
--- NOTE | 2025-04-16 17:46 | ITS.CL.PACE ---
Perpetual Inventory Clerk - Pacemaker Implant
Pacemaker Implant
Procedure Report:
Lead Revision for right ventricular conduction system pacing lead dislodgement:
Ms. Barbosa is a 70 yrs old woman with nonreversible symptomatic bradycardia due to second degree (Mobitz II) atrioventricular block s/p dual chamber LBB pacing MDT pacemaker implanted on 03/22/2025 (Dr. Valdovinos) had RV pacing lead dislodgement and is
here for lead revision.
Her underlying rhythm is quite slow in 30s and is considered pacemaker dependent for the lead revision.
Indications: nonreversible symptomatic bradycardia due to second degree (Mobitz II) atrioventricular block
Date of the Procedure: 04/16/2025
Pre-Operative Diagnosis: nonreversible symptomatic bradycardia due to second degree (Mobitz II) atrioventricular block
Post-Operative Diagnosis: nonreversible symptomatic bradycardia due to second degree (Mobitz II) atrioventricular block
Procedure Performed: Removal of dislodged pacing lead and placement of new conduction sysem pacing lead.
Performing Physician:
Rg Saavedra MD
Anesthesia:
See anesthesia records
Pre-operative antibiotics:
Ancef
Detailed Description of the Procedure:
The patient was identified using hospital identification and informed consent obtained for the procedure. The risks were explained including, but not limited to: Bleeding, infection, arrhythmia, stroke, vascular/cardiac/lung puncture, surgery,
pacemaker dependency/device malfunction. All questions were answered.
The patient was brought to the electrophysiology laboratory in stable condition in fasting state. Continuous electrocardiographic and hemodynamic monitoring was initiated. The initial rhythm was AV sequuential paced rhythm.
The procedure site was meticulously prepared with surgical scrub and allowed to dry with no pooling. Sterile draping was applied to cover the procedure site. The image intensifier was draped with sterile bag and positioned over the patient.
A surgical pause and time out was performed immediately prior to the procedure with review of her medical history, recent labs, allergies and medications with site of procedure identified and consent noted in the chart. Antibiotics pre operatively
given. All team members concurred.
The rightt infraclavicular region was prepped and draped in the usual sterile fashion. Local anesthesia was administered subcutaneously using 1% lidocaine / Bupivacaine. Using the prior incision, the skin was incised again and the debris and the
prior sutures were removed. There were blood pool noted in the device pocket and was drained and cleaned. The pocket was revised and the active bleeders were cauterized.
The RV lead was used for pacing and new access was obtained with micropuncture apparatus to the right axillary vein.
The guide wire was then advanced to the RA and was advanced to the RV. The preformed curved long hemostatic peel away HIS sheath was advanced into the RV cavity. A left bundle pacing wire was advanced into the sheath to the tip with ventricular
signals noted with unipolar manner.
The HIS location was identified under guidance of the fluoroscopy and the pacing wire signals. The sheath with the pacing lead was moved deeper into the RV cavity on the septum at a more inferior and distal to the HIS signals.
There was sheath approximation confirmed on GERMAN view. Once adequate signals were noted on the electrograms of the pacing lead in the sheath with W pattern signals on the RV septum, the lead was advanced and clockwise turns were done under
fluoroscopic guidance. The septum was engaged and the lead was paced intermittently after every 2-3 turns. The Impedance of the lead was measured that remained stable around 1000 Ohm. The lead was paced and septal pacing was noted. The sheath was
placed again to the septum and the lead was advanced 2-3 turns with pacing with each advancement. However the RV cavity was large and the annulus movement made the RV lead quite unstable. The non-selective LBB pacing noted but deemeed unstable and
was moved. The sheath was not able to move freely in the RV cavity with good approximation with the septal wall could not be done.
Decision was made to switch to deflectable sheath and the access was upgraded to 9Fr sheath. Using guidewire the MDT deflectable sheath was placed in the RV cavity and was manipulated to have good approximation with the RV septum where the annulus
movement was not likely to affect the RV lead.
There was sheath approximation confirmed on GERMAN view. Once adequate signals were noted on the electrograms of the pacing lead in the sheath with W pattern signals on the RV septum, the lead was advanced and clockwise turns were done under
fluoroscopic guidance. The septum was engaged and the lead was paced intermittently after every 2-3 turns. The Impedance of the lead was measured that remained stable around 1000 Ohm. The lead was paced and septal pacing was noted. The sheath was
placed again to the septum and the lead was advanced 2-3 turns with pacing with each advancement. The ventricular capture was monitored throughout and the captures gradually changed from RV pacing to non-selective pacing to LBB pacing with R wave on
V1 morphology.
The long guiding sheath was cut and removed from the RV without change in lead position, impedance, sensing, or capture. The lead was sutured to the underlying pectoralis fascia with 2-0 Ethibond stitches.
The new lead was paced and the old wires were accessed. The atrial lead was tightly sutured but the RVlead was freely moving and came out of the RV cavity.
The sleeve ws removed by cutting out the silk sutures.
Then attnetion was given to atrial lead. The atria llead had minimal slack and was pulling out as wel. The atrial lead had good threshold and was removed from the generator and stylet was placed and was pushed into the atrial cavity with additio of
adequate redundency by adding the slack.
Then the old RV lead was removed from the generrator and was switched with the new lead.
There was excellent sensing, pacing, and impedance from the leads, with no diaphragmatic stimulation at 10 V output.�Bovie cautery, antibiotics, and fluoroscopy were used.
The electrode terminals were connected to the pulse generator, which was placed into the pocket. The wound was irrigated thoroughly with antibiotic solution.
A Tyrx pouch was placed around the pocket and the leads.
The pocket was closed in 3 layers using 2-0 VLoc sutures. Steri-Strips and a bandage were applied externally.�
Procedure End:
The procedure was tolerated well. A bandage was applied to the incision area. Pressure dressing was placed.
Estimated Blood loss:
5 cc
Specimens Removed:
No cultures and no specimens were obtained. No intraoperative pathology was identified.
Urine output:
None
Packs / Drains/ Tubes:
None
Instrument / Sponge Count Correct:
Yes
Complications of the Procedure:
None
Condition of Patient at Time of Transfer:
Hemodynamically stable with no neurological or vascular compromise.
Removed RV lead:
RV Lead: Medtronic; Model# 3830-69cm; Serial# [id number].
- implanted on 03/21/25; Explanted on 04/16/25
Device information:�
Generator: [employer]; Model# W1DR01; Serial# [id number].
����������� RA pacing lead: [employer]; Model# 5076-45cm; Serial# [id number].
Measured data on the RV lead was sensing of 3.3 mV, impedance of 380 ohms and threshold of 0.75 V at 0.4ms. �
RV LBB pacing lead: Medtronic; Model# 3830-69cm; Serial# [id number].
Measured data on the RV lead was sensing of 5.3mV, impedance of 741 ohms and threshold of 0.75 V at 0.4ms�
PROGRAMMING PARAMETERS:�
Pranav parameter settings were DDDR 60-130 �
Summary:
Successful removal of dislodged RV lead, reposition of atrial lead and placement of new conduction system pacing RV lead
Results/Recommendations:
-Please follow up CXR�
1. Please provide patient with adequate pain control�
Instructions to be given to patient:�
- Please follow up with [facility] at [address] [place] [address] ([phone]) to get your wound checked within 14 days of your discharge.
- Do not wet incision site until after it is evaluated at cardiology clinic. No showers until then. Sponge baths are OK.�
- Allow 'steri strips' to fall off on their own�
- Do not lift left elbow above shoulder, particularly with sudden jerking movements, for 1 month�
- Do not lift anything weighing more than 5 pounds with the left arm for 1 month�
- If you notice any fevers, shortness of breath, lightheadedness, chest pain, or worsening swelling in the wound site, please contact the arrhythmia clinic, contact your flight operations inspector, or present to the hospital for evaluation.�
Rg Saavedra MD
Electrophysiology
[2025-04-16 17:48] VITALS: BP 127/74
[2025-04-16 18:38] VITALS: BP 131/86
[2025-04-16] MEDS: ANCEF 5 IV (20:07)
[2025-04-16] MEDS: TYLENOL 650 MG PO (20:19)
[2025-04-16 22:47] VITALS: BP 120/76
[2025-04-16] MEDS: LIPITOR 10 MG PO (22:48)
[2025-04-16] MEDS: LAMICTAL 150 MG PO (22:48)
[2025-04-16] MEDS: SEROQUEL 100 MG PO (22:48)
--- NOTE | 2025-04-16 23:07 | PTCARENOTE ---
Pt rec'd at change of shift awake,alert. cxr completed in dept. right ant chest with pressure drsg and immobilizer in use; no swelling noted. Pt medicated with Tylenol for c/o burning at site.
--- NOTE | 2025-04-17 02:27 | DOWNTIME ---
There was a Done. Client [employer] Downtime on 04/17/2025 from 0100 to 04/17/2025 at 0215. Downtime documentation of patient's care, including medication administrations, has been reconciled in the electronic record per guidelines. Refer to the
patient's paper chart under the miscellaneous tab to see printed paper medication records and downtime forms.
[2025-04-17] MEDS: ANCEF 5 IV (04:00)
[2025-04-17 04:02] VITALS: BP 105/61
[2025-04-17] MEDS: SYNTHROID 50 MCG PO (04:25)
[2025-04-17 04:54] LABS: Hematocrit 37.3 % (37.0-47.0); Hemoglobin 12.1 g/dL (12.0-16.0); Mean Corp Hgb Conc. 32.4 g/dL (33.0-37.0); Mean Corpuscular Volume 100.3 fL (81.0-99.0); Platelet Count 244 10^3/uL (130-400); Red Cell Dist. Width 12.4 % (11.5-14.5)
[2025-04-17 05:19] LABS: Blood Urea Nitrogen 13 mg/dl (7-17); Calcium 9.4 mg/dl (8.4-10.2); Carbon Dioxide 25 mmol/L (22-30); Chloride 106 mmol/L (98-107); Estimated Creatinine Clearance 85 ml/min; Glucose 128 mg/dl (70-99); Magnesium 2.2 mg/dl (1.6-2.3); Potassium 4.6 mmol/L (3.5-5.1); Sodium 140 mmol/L (135-145); eGFR > 60.00
[2025-04-17 07:00] VITALS: BP 105/62
--- NOTE | 2025-04-17 08:16 | W.PN.CD ---
Today's Communication / Plan
-
- Discharge home today
Impression / Plan
-
69-year-old female with hyperlipidemia, hypothyroidism, breast cancer status-postlumpectomy and radiation (2016), cerebellar hemangioma status-post removal (2014), obesity, and bipolar disorder, high degree heart block s/p PPM for Mobitz 2 heart
block on 03/22/25 and RV lead dislodgement s/p re-implant on 04/16/25.
Mobitz 2 heart block/RBBB s/p PPM
- s/p lead reimplant and removal of the old lead
- PPM interrogation today
- Pocket looks good. No hematoma.
- CXR is acceptable.
- She is safe for discharge from a cardiovascular standpoint
Hypothyroidism:
- Free T4 normal here
Hyperlipidemia
- LDL 59 on 03/22/2025
- On simvastatin 20 mg daily at home
Breast cancer:
- In remission.
Bipolar disorder:
- Mood appears to be stable at this time.
- Management as per primary team.
Subjective: feeling well. Anticipating going home today.
Physical Exam
Vital Signs/Labs
Vital Signs
Temp Pulse Resp BP Pulse Ox
97.8 F 61 18 105/61 97
04/17/25 07:21 04/17/25 07:21 04/17/25 07:21 04/17/25 04:02 04/17/25 07:21
04/16/25 04/17/25 04/18/25
06:59 06:59 06:59
Actual Weight 82.1 kg
04/17/25 04:17
04/17/25 04:17
Magnesium 2.2 mg/dl (1.6-2.3) 04/17/25 04:17
Physical Exam
Constitutional: No acute distress and Comfortable
EENT: Anicteric and Moist mucous membranes
Cardiovascular: Rhythm & rate is regular, Pedal edema is absent and JVD pressure is normal
Respiratory: Respiratory effort normal, Lungs clear to auscul. and Wheeze Absent
GI: Soft, Non tender and Normal bowel sounds
Neuro/Psych: Alert, Oriented and Motor deficits absent
Other: Cardiac Device Site
Data Reviewed
-
Date of Service: April 17, 2025
Medical Decision Making: Reviewed Test Results, Independent Historian Assessment, Test Interpretation and Review of Case with other Provider
EKG: Tracing Personally Visualized and interpreted
X-Ray/CT/US/MRI/NUC/PET: Image Personally Visualized and interpreted
Labs: Labs Reviewed by me
Old Records: Reviewed
[2025-04-17] MEDS: TYLENOL 650 MG PO (08:40)
--- NOTE | 2025-04-17 08:44 | CM ---
Reviewed chart. Met with Mrs. Barbosa to review discharge plans. She states prior to admission she resides with her spouse in a two story home without any steps to enter. She states she has a full flight of steps to get to bedroom and full
bathroom. She states she has a powder room on the first floor. She states prior to admission she was independent with ambulation and adls. She states she haile not have any DME in the home. She states she has a prescription plan and uses [facility] The discharge plan is to return home with her spouse when medically stable.
--- NOTE | 2025-04-17 09:50 | W.DS.TRANS ---
DC Summary - Product Design Manager
-
Discharge Instructions:
Discharge Diagnosis/Procedures Lead revision
Diet Low Cholesterol
Driving Restrictions No driving for 1 week
Bathing Restrictions OK to Shower
Instructions:
Stand-Alone Forms: DC Inst - Implanted Device
Changes to Home Medications: No
Discharge Medications:
DC Medications w/original date entered in [facility]
Prevagen 1 cap PO DAILY 03/21/25
ashwagandha extract 120 mg capsule 120 mg PO QPM 03/21/25
cholecalciferol (vitamin D3) 25 mcg (1,000 unit) capsule (Vitamin D3) 25 mcg PO QPM 03/21/25
lamotrigine 150 mg tablet (Lamictal) 150 mg PO HS 03/21/25
levothyroxine 50 mcg tablet (Synthroid) 50 mcg PO DAILY 03/21/25
omega 4-ynv-fcj-fish oil 1,000 mg (120 mg-180 mg) capsule (Fish Oil) 1 cap PO QPM 03/21/25
quetiapine 100 mg tablet (Seroquel) 100 mg PO HS 03/21/25
simvastatin 20 mg tablet (Zocor) 20 mg PO HS 03/21/25
turmeric 400 mg capsule 400 mg PO HS 03/21/25
Home Medication Changes
Pending Results: No
--- NOTE | 2025-04-17 10:13 | PTCARENOTE ---
Pt received this am in a V paced rhythm. Right chest aqucell dressing dry and intact. Site WNL. Medicated with Tylenol 650 mg po as ordered for pain with relief. Pt OOB ad rl in the room, gait steady. Pt discharged to home with her .
Discharge instructions given and reviewed with good understanding and all questions answered.
== END 2025-04-17 10:35 | disposition home or self-care (01) ==
LOC: CATH 12:16
PROVIDERS: Nurse Practitioner Adult Health; ATTENDING PHYSICIAN Internal Medicine Cardiovascular Disease; FAMILY PHYSICIAN Hospitalist; OTHER PHYSICIAN Internal Medicine Cardiovascular Disease
DX: T82.120A Displacement of cardiac electrode, initial encounter (principal); Y83.1 Surgical operation with implant of artificial internal device as the cause of abnormal reaction of the patient, or of later complication, without mention of misadventure at the time of the procedure; I44.1 Atrioventricular block, second degree; C50.919 Malignant neoplasm of unspecified site of unspecified female breast; E03.9 Hypothyroidism, unspecified; E66.9 Obesity, unspecified; E78.5 Hyperlipidemia, unspecified; I45.10 Unspecified right bundle-branch block; I49.8 Other specified cardiac arrhythmias; Z79.890 Hormone replacement therapy; Z92.3 Personal history of irradiation; Z88.2 Allergy status to sulfonamides; Z79.899 Other long term (current) drug therapy; F31.9 Bipolar disorder, unspecified
CPT/HCPCS: 33235; 33216; 33215; 71045; 80048; 83735; 85027; 93005; C1887; C1892; C1898